=== PATIENT | female | born 1935 | race Caucasian/White ===

== ENCOUNTER 2024-12-29 10:23 | Day surgery (SDC) | payer MEDICARE ==
[2024-12-25 14:17] LABS: APTT 28 SECONDS (22-32); INR 1.1 INR; PROTHROMBIN TIME 10.9 SECONDS (9.0-12.0)
[2024-12-25 14:21] LABS: ALBUMIN 3.7 G/DL (3.4-5.0); ANION GAP 7 (8-16); BLOOD UREA NITROGEN 16 MG/DL (7-18); BUN/CREATININE RATIO 18.2 (10.0-20.0); CHLORIDE 105 MMOL/L (99-107); CHOL/HDL RATIO 2.7 (0.00-4.99); CHOLESTEROL 186 MG/DL (0-200); CREATININE 0.88 MG/DL (0.40-0.90); GLUCOSE 102 MG/DL (70-104); HDL CHOLESTEROL 68 MG/DL (35-60); LDL CHOLESTEROL 107 MG/DL (50-100); POTASSIUM 3.8 MMOL/L (3.5-5.1); SODIUM 143 MMOL/L (135-145); TOTAL CARBON DIOXIDE 31.5 MMOL/L (24-32); TRIGLYCERIDES 140 MG/DL (20-135); eGFR 61 ML/MIN
[2024-12-25 14:22] LABS: BASOPHILS % (AUTO) 0.5 % (0-1); EOSINOPHILS # (AUTO) 0.1 X10'3 (0-0.9); EOSINOPHILS % (AUTO) 1.6 % (0-6); HEMOGLOBIN 14.6 g/dl (12.0-16.0); LYMPHOCYTES # (AUTO) 0.9 X10'3 (1.1-4.8); LYMPHOCYTES % (AUTO) 16.3 % (21-51); MEAN CORPUSCULAR HEMOGLOBIN 29.5 PG (27.0-31.0); MEAN CORPUSCULAR VOLUME 86.7 FL (78-98); MEAN PLATELET VOLUME 7.9 FL (7.4-10.4); MONOCYTES # (AUTO) 0.4 X10'3 (0-0.9); MONOCYTES % (AUTO) 6.8 % (2-12); NEUTROPHILS # (AUTO) 4.2 X10'3 (1.8-7.7); NEUTROPHILS % (AUTO) 74.8 % (42-75); PLATELET COUNT 258 X10'3 (140-440); RED BLOOD COUNT 4.96 X10'6 (4.20-5.60); RED CELL DISTRIBUTION WIDTH 14.1 % (11.5-14.5); WHITE BLOOD COUNT 5.6 X10'3 (4.5-11.0)
[~2024-12-29] VITALS: Ht 152.4 cm; Wt 47.7 kg
[2024-12-29] MEDS ORDERED: MIDAZolam 1mg/ml 10ml vial IV ONE (11:00)
[2024-12-29] MEDS ORDERED: fentaNYL/PF 50MCG/1 ML 2ML syringe IV ONE (11:00)
[2024-12-29] MEDS ORDERED: normal saline 1000ml 1,000 ML IV SCH (11:00)
[2024-12-29 11:15] VITALS: BP 127/71; PULSE 77; RESP 16; TEMP 97.6; O2SAT 98
[2024-12-29] MEDS ORDERED: AMLO5TAB16 PO (11:29)
[2024-12-29] MEDS ORDERED: METO-395 PO (11:29)
[2024-12-29] MEDS ORDERED: TIMO5DRO15 EACHEYE (11:29)
[2024-12-29] MEDS ORDERED: FLEC50TA28 PO (11:29)
[2024-12-29] MEDS ORDERED: APIX2.5T PO (11:29)
[2024-12-29] MEDS ORDERED: OLME20TA69 PO (11:30)
[2024-12-29] MEDS ORDERED: GABA-1405 (11:30)
[2024-12-29] MEDS ORDERED: atropine 0.1mg/ml 10ml syringe ONE (12:11)
[2024-12-29] MEDS ORDERED: fentaNYL/PF 50MCG/1 ML 2ML syringe ONE (12:11)
[2024-12-29] MEDS ORDERED: midazolam 1 mg/ML 2ml injection ONE ×2 (12:11)
[2024-12-29] MEDS ORDERED: amiodarone 50MG/ML inj IV ONE (12:11)
--- NOTE | 2024-12-29 12:33 | OPERATIVE REPORT ---
Operative Report Providers to CC CC: CARON CARRILLO MD; ALPESH RESTREPO MD Operative Report CARDIOVERSION DATE: 12/29/24 ATTENDING PHYSICIAN: Alpesh Restrepo MD INDICATION: Atrial Fibrillation MEDICATIONS: 1. Versed 2. Fentanyl PROCEDURE DETAILS: The patient was brought to the clinical laboratory scientist in a fasting state. Informed consent was obtained. The patient was given conscious sedation with a 1 mg of versed and 25 micrograms of fentanyl. Following adequate conscious sedation, a synchronized cardioversion was performed at 200 Joules (Biphasic). The patient was successfully converted from atrial fibrillation to sinus rhythm. The patient tolerated the procedure well with no complications. IMPRESSION: 1. Successful synchronized cardioversion with the patient converting from atrial fibrillation to sinus rhythm. RECOMMENDATIONS: 1. Continue current medication regimen, including anticoagulation with Eliquis. 2. Follow-up in the office in 2-3 weeks time. ALPESH RESTREPO MD December 29, 2024 12:33
[2024-12-29 12:51] VITALS: BP 120/87; PULSE 52; RESP 16; O2SAT 98
[2024-12-29 13:00] VITALS: BP 115/73; PULSE 52; RESP 16; O2SAT 98
[2024-12-29 13:15] VITALS: BP 108/65; PULSE 51; RESP 14; O2SAT 98
--- NOTE | 2024-12-29 13:19 | ELECTROCARDIOGRAPH REPORT ---
[facility] Test Date: 2024-12-29 Test Time: 13:15:32 Pat Name: REVA ZAZUETA Department: [facility] Patient ID: [facility]-[id number] Room: Gender: F Sound Mixer: ANDREA : [id number] Requested By: JARAD CARRILLO Order Number: [id number] Reading MD: Dr. CHANDLER Mayen Measurements Intervals [place] Rate: 52 P: 70 HI: 190 QRS: 57 QRSD: 92 T: 42 QT: 482 QTc: 449 Interpretive Statements Sinus bradycardia Atrial premature complex Electronically Signed On 12-29-2024 17:36:[address] CHANDLER Mayen Please click the below link to view image of tracing.
[2024-12-29 13:30] VITALS: BP 106/63; PULSE 52; RESP 14; O2SAT 98
[2024-12-29 13:45] VITALS: BP 106/65; PULSE 49; RESP 16; O2SAT 98
== END 2024-12-29 14:00 | disposition home or self-care (01) ==
LOC: SSTAY O 10:23
PROVIDERS: ATTEND Student in an Organized Health Care Education/Training Program
DX: I48.91 Unspecified atrial fibrillation (principal); I10 Essential (primary) hypertension; Z79.899 Other long term (current) drug therapy; Z98.890 Other specified postprocedural states
CPT/HCPCS: 36415; 80048; 80061; 83695; 85025; 85610; 85730; 92960; 93005; A4620; A4663; J2250; J3010; J7030; 99152; J0282; J0461